=== PATIENT | female | born 1950 | race Caucasian/White ===

== ENCOUNTER 2016-11-29 10:07 | Emergency (ER) | payer OTHER ==
[2016-11-29 11:01] LABS: MANUAL DIFF NEEDED? NO
[2016-11-29 11:05] LABS: BASO% 0.1 % (0.0-0.8); EOS# 0.11 X1000 (0.0-0.7); EOS% 1.4 % (0.0-10.0); HEMATOCRIT 37.1 % (37.0-47.0); HEMOGLOBIN 12.4 g/dL (12.0-16.0); IMM GRAN# 0.02 X1000 (0.0-0.04); IMM GRAN% 0.3 % (0.0-0.5); LYMPH# 1.63 X1000 (1.2-3.4); MCH 28.5 PG (27-31); MCHC 33.4 g/dL (33-37); MCV 85.3 FL (81-99); MONO# 0.71 X1000 (0.11-0.59); MONO% 9.1 % (1.7-9.3); MPV 10.8 FL (7.4-10.4); NEUT% 68.1 % (42.2-75.2); PLT 226 X1000 (130-400); RBC 4.35 XMIL (4.2-5.4)
[2016-11-29 11:25] LABS: AGAP 12; ALBUMIN 4.2 g/dL (3.5-5.0); ALKALINE PHOSPHATASE 66 U/L (32-104); BUN 10 mg/dL (8-22); CALCIUM 8.9 mg/dL (8.8-10.2); CHLORIDE 103 mmol/L (98-107); COSMO 283; GOT 19 U/L (10-30); GPT 20 U/L (10-36); POTASSIUM 4.3 mmol/L (3.5-5.1); SODIUM 141 mmol/L (136-145); TCO2 26 mmol/L (25-35); TOTAL BILIRUBIN 0.47 mg/dL (0.20-1.00); TOTAL PROTEIN 6.5 g/dL (6.3-8.3)
--- NOTE | 2016-11-29 11:50 | PROVIDER DOCUMENTATION ---
HPI-Musculoskeletal Pain/Inj - GENERAL Source: patient - HX OF PRESENT ILLNESS-MUSKULOSKELTAL Quality of Pain: reports: cramping Severity in ED: mild Onset/Duration: just prior to arrival Timing: still present Modifying Factors: improves with: nothing Any recent injury?: No Similar Symptoms Previously?: No Recently seen or treated by another doctor?: No - LOWER EXTREMITY PAIN/INJURY Lower Extremities Pain: leg: bilateral Context / Method of Injury: reports: unknown Associated Symptoms: reports: other (cramping/jerking) <Paola Field - Last Filed: 11/29/16 11:45> - GENERAL Source: family - HX OF PRESENT ILLNESS-MUSKULOSKELTAL Quality of Pain: reports: cramping Severity in ED: mild Timing: resolved prior to arrival Modifying Factors: improves with: nothing Any recent injury?: Yes Locality of Occurance: Other (DENTIST OFFICE) Similar Symptoms Previously?: Yes (LEG CRAMPS) Recently seen or treated by another doctor?: Yes (SENT TO ED FROM DENTIST OFFICE.) - FALL INJURY Location of Pain/Injury: reports: none Pain Radiation: reports: no radiation - UPPER EXTREMITY PAIN/INJURY Associated Symptoms: reports: muscle spasms (REPORTS AT DENTIST AND LEGS STARTED JERKING. STOPPED PRIOR TO ARRIVAL) <Sheri Connolly - Last Filed: 11/29/16 12:13> - GENERAL Chief Complaint: Extremity Pain Stated Complaint: leg spasms Time Seen by Provider: 11/29/16 11:35 - HX OF PRESENT ILLNESS-MUSKULOSKELTAL Nature of Presenting Problem: 66 y/o F presents to ED cc of leg cramping/jerking. Pt states she was at the dentist office for a procedure this AM when her legs began to cramp and jerking with some pain. Pt was already numbed when this onset. Dentist office sent to ED for evaluation and pt will be seen when discharged to finish procedure. Pt does not report anymore cramping/jerking on exa,. Pt is alert and oriented x 3. Pt has equal pulses on bilat lower extremity. (Paola Field) Review of Systems - Adult - REVIEW OF SYSTEMS - ADULT Constitutional: denies: chills, fever Ears, Nose, Mouth & Throat: denies: ear pain, throat pain Cardiovascular: denies: chest pain, palpitations Respiratory: denies: cough, shortness of breath Genitourinary: denies: dysuria, discharge Musculoskeletal: reports: other (bilat lower extermity cramping/jerking). 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) Integumentary: reports: no symptoms reported Neurological: reports: no symptoms reported Psychiatric: reports: no symptoms reported Endocrine: reports: no symptoms reported Hematologic/Lymphatic: reports: no symptoms reported Allergic/Immunologic: reports: no symptoms reported All Other Systems: Reviewed and Negative <Sheri Connolly - Last Filed: 11/29/16 12:13> Past History - Adult - PAST MEDICAL HISTORY-ADULT Review of Records: reports: Old Records Reviewed, Nursing Assessment Review Major Childhood Illnesses: reports: denies history Cardiovascular: reports: CAD, HTN, hyperlipidemia Respiratory: reports: denies history Gastrointestinal: reports: denies history Obstetrical/Gynecological: reports: denies history Genitourinary: reports: denies history Musculoskeletal: reports: denies history Neurological: reports: TIA (1998) Psychiatric: reports: anxiety, depression Endocrine/Immune: reports: denies history Other Conditions: reports: denies history - PRIOR SURGERIES/PROCEDURES Surgical/Procedure History: reports: hysterectomy, , orthopedic ( extremity) - IMMUNIZATION STATUS Childhood Immunizations: See Nurse Assessment Flu Vaccine: See Nurse Assessment - FAMILY HISTORY Family History: reviewed, not pertinent - SOCIAL HISTORY Smoking: denies Substance Use: denies <Paola Field - Last Filed: 11/29/16 11:45> - PAST MEDICAL HISTORY-ADULT Review of Records: reports: Old Records Reviewed Major Childhood Illnesses: reports: denies history Cardiovascular: reports: denies history Respiratory: reports: denies history Gastrointestinal: reports: denies history Genitourinary: reports: denies history Neurological: reports: CVA Psychiatric: reports: denies history Endocrine/Immune: reports: denies history - PRIOR SURGERIES/PROCEDURES Surgical/Procedure History: reports: - FAMILY HISTORY Family History: reviewed, not pertinent - SOCIAL HISTORY Smoking: denies Substance Use: none/never Living Situation: family <Sheri Connolly - Last Filed: 11/29/16 12:13> Physical Exam-Injury Related - Physical Exam-Injury Related Initial Vital Signs Reviewed: Yes General Appearance: appears well, alert, no apparent distress Eyes: PERRL/EOMI, pink conjunctivae Head, Ears, Nose, Mouth & Throat: normocephalic/atraumatic, moist mucous membranes, normal ENT inspection Neck: non-tender, full range of motion Respiratory: chest non-tender, lungs clear Cardiovascular: normal peripheral pulses, regular rate, rhythm, no edema Abdominal Exam: normal bowel sounds, non tender, soft Extremity: normal range of motion, non-tender, normal capillary refill. negative: deformity, slow capillary refill Integumentary: normal color, warm/dry, blanching Neurologic: grossly normal, no motor/sensory deficits Psych/Mental Status: oriented x 3 <Paola Field - Last Filed: 11/29/16 11:45> - Physical Exam-Injury Related Initial Vital Signs Reviewed: Yes General Appearance: appears well Immobilization?: negative: backboard, C-collar, applied in ED, applied ASSISTANT FOREMAN Eyes: negative: PERRL/EOMI, pink conjunctivae, fundi clear, no AV nicking, anisocoria, conjuctival exudate, EOM palsy, meningismus, pale conjunctivae, photophobia, sclera injected, scleral icterus, subconjunctival hemorrhage, sunken eyes, other Head, Ears, Nose, Mouth & Throat: negative: normocephalic/atraumatic, moist mucous membranes, normal ENT inspection, TMs normal, pharynx normal, angioedema , dental decay, hearing deficit, pharyngeal erythema, tonsillar exudate, TM abnormal, TM obscurred by cerumen, frontal tenderness, maxillary tenderness, other Neck: negative: non-tender, full range of motion, supple, normal inspection, pain with axial compression, Brudzinski's sign, carotid bruit, C-spine tenderness, decresed ROM, ecchymosis, limited range of motion, lymphadenopathy, muscle spasm, nexus criteria negative, pain on movement, subcutaneous emphysema , swelling, trachial deviation, tender lateral, tender midline, thyromegaly, vertebral point tenderness, other Respiratory: negative: chest non-tender, lungs clear, normal breath sounds, no pleuratic chest pain, no respiratory distress, no accessory muscle use, respiratory distress, decreased breath sounds, accessory muscle use, crackles, rales, rhonchi, stridor, wheezing, dull on percussion, prolonged expiration, pain on inspiration, pleural rub, retractions, splinting, decreased rate, increased rate, crepitus, ecchymosis, flail chest, palpable fracture, paradoxical movements, rib tenderness, seat belt bruising, tenderness, other Cardiovascular: negative: normal peripheral pulses, regular rate, rhythm, no edema, no gallop, no JVD, no murmur, JVD, bradycardia, tachycardia, diastolic murmur, systolic murmur, gallop/S3, gallop/S4, extra beats, friction rub, irregularly irregular, PMI displaced laterally, other Chest/Breast: negative: deferred, normal breast inspection, no masses/lumps, no tenderness, nipple discharge, tenderness, mass/lump noted, other Peripheral Pulses: radial (R): 2+, radial (L): 2+ Abdominal Exam: normal bowel sounds Back Exam: normal inspection Extremity: normal range of motion Integumentary: normal color, warm/dry Neurologic: grossly normal (OLD CVA WITH MINIMAL FACIAL DROOP AT BASELINE PER ) - Glascow Coma Score Best Eye Response (Thayer): (4) open spontaneously Best Verbal Response (Cortez): (5) oriented Best Motor Response ([place]ayer): (6) obeys commands [place] Total: 15 <Sheri Connolly - Last Filed: 11/29/16 12:13> Departure <Paola Field - Last Filed: 11/29/16 11:45> - Departure Time of Disposition Order: 12:01 Certified Medical Emergency: Emergent <Sheri Connolly - Last Filed: 11/29/16 12:13> - Departure DIAGNOSIS: Muscle spasm of both lower legs Disposition: HOME 01 Condition: Stable Additional Instructions: CONTINUE YOUR HOME MEDICATIONS. FOLLOW UP WITH YOUR DENTIST AND YOUR PRIMARY MD FOR FURTHER EVALUATION AND MANAGEMENT. RETURN TO ER FOR ANY WORSENING SYMPTOMS. ED Follow Up Instructions: You have been treated by a care provider in the Emergency Department. These instructions are being provided to you so you can have an understanding of how to care for yourself upon discharge. Upon discharge from the Emergency Department, you are responsible for making arrangements for follow-up care by a physician of your choice. Take all prescribed medications as directed. Return to the Emergency Department immediately for any new or worsening symptoms. You may call the Physician Referral phone number at [phone] to obtain a list of Physicians who are taking new patients. Prescriptions: Cyclobenzaprine [Flexeril] 10 mg PO TID #10 tablet Referrals: Gray Covarrubias [Primary Care Provider] - Attestation - Scribe Verification/Attestation Scribe:: Paola Field Acting as Scribe for:: Danny Silva Scribe documention review:: This chart was documented by a scribe and accurately reflects the service the provider performed and the decisions made by the provider. - Physician/ WILDER Attestation Advanced Practice Provider:: Sheri Connolly <Paola Field - Last Filed: 11/29/16 11:45> Physician Attestation
[2016-11-29 12:18] VITALS: BP 138/79
== END 2016-11-29 12:18 | disposition home or self-care (01) ==
LOC: EDBD → ED 10:07
DX: R25.2 Cramp and spasm (principal); M79.605 Pain in left leg; M79.604 Pain in right leg; I25.10 Atherosclerotic heart disease of native coronary artery without angina pectoris; I10 Essential (primary) hypertension; E78.5 Hyperlipidemia, unspecified; I69.992 Facial weakness following unspecified cerebrovascular disease; Z79.82 Long term (current) use of aspirin; Z79.899 Other long term (current) drug therapy
CPT/HCPCS: 80053; 85025